=== PATIENT | male | born 1955 | race Caucasian/White ===

== ENCOUNTER 2017-10-17 11:00 | Inpatient (IN) | payer MEDICARE ==
[~2017-10-17] VITALS: Ht 177.8 cm; Wt 81.8 kg
[2017-10-17] MEDS ORDERED: HYDR12.58 PO (11:22)
[2017-10-17] MEDS ORDERED: UMEC62.5 INH (11:22)
[2017-10-17] MEDS ORDERED: FURO-93 PO (11:22)
[2017-10-17] MEDS ORDERED: ATOR-2 PO (11:22)
[2017-10-17] MEDS ORDERED: GABA-827 PO (11:22)
[2017-10-17] MEDS ORDERED: MORP15TA PO (11:22)
[2017-10-17] MEDS ORDERED: OXYC15TA PO (11:22)
[2017-10-17] MEDS ORDERED: CARV-39 PO (11:22)
[2017-10-17] MEDS ORDERED: DICLOFENAC 1% (11:22)
[2017-10-17] MEDS ORDERED: POTA10TA31 PO (11:22)
[2017-10-17] MEDS ORDERED: DOXA4TAB3 PO (11:22)
[2017-10-17] MEDS ORDERED: ASPI-621 PO (11:47)
[2017-10-17 11:55] LABS: BASOPHILS # (AUTO) 0.04 x10^3/uL (0-0.1); BASOPHILS % (AUTO) 1 % (0-1); EOSINOPHILS % (AUTO) 4 % (1-7); LYMPHOCYTES # (AUTO) 1.61 x10^3/uL (1-3.4); LYMPHOCYTES % (AUTO) 23 % (22-44); MD NO; MEAN CORPUSCULAR HEMOGLOBIN 28.6 pg (27.5-34.5); MEAN CORPUSCULAR HGB CONC 33.4 g/dL (33.2-36.2); MEAN CORPUSCULAR VOLUME 85.7 fL (81-97); MEAN PLATELET VOLUME 7.6 fL (7.4-10.4); MONOCYTES # (AUTO) 0.63 x10^3/uL (0.2-0.8); MONOCYTES % (AUTO) 9 % (2-9); NEUTROPHILS # (AUTO) 4.48 x10^3/uL (1.8-6.8); NEUTROPHILS % (AUTO) 64 % (42-75); PLATELET COUNT 234 x10^3/uL (130-400); RED BLOOD COUNT 4.14 x10^6/uL (4.38-5.82); RED CELL DISTRIBUTION WIDTH 17.7 % (9.4-14.8)
[2017-10-17 12:04] LABS: INTERNATIONAL NORMALIZED RATIO 1.05 (0.93-1.1); PROTHROMBIN TIME 10.8 Seconds (9.6-11.5)
[2017-10-17 12:07] LABS: ALBUMIN 3.7 g/dL (3.4-5.0); ANION GAP 6 mmol/L (5-15); CALCIUM 8.4 mg/dL (8.5-10.1); CHLORIDE 105 mmol/L (98-107)
[2017-10-17 12:11] LABS: ALANINE AMINOTRANSFERASE 25 U/L (12-78); ALKALINE PHOSPHATASE 99 U/L (45-117); BILIRUBIN,TOTAL 0.6 mg/dL (0.2-1.0); CREATININE 0.75 mg/dL (0.7-1.3); TOTAL PROTEIN 7.8 g/dL (6.4-8.2)
[2017-10-17 12:28] LABS: MICROSCOPIC NOT IND
[2017-10-17 12:31] LABS: CULTURE INDICATED? NO
[2017-10-17 12:50] LABS: HEMOGLOBIN A1C 5.7 % (4.2-6.3)
[2017-10-20] MEDS ORDERED: KETOROLAC 60 MG/2 ML ONE (07:02)
[2017-10-20] MEDS ORDERED: ROPIvacaine/PF 0.2%, 20 ML ONE (07:03)
[2017-10-20] MEDS ORDERED: TRANEXAMIC ACID 100 MG/ML, 10ML ONE ×4 (07:03)
[2017-10-20] MEDS ORDERED: EPINEPHRINE 1 MG/ML, 1ML ONE (07:03)
[2017-10-20] MEDS ORDERED: GABAPENTIN 300 MG CAPSULE PO ONE (10:00)
[2017-10-20] MEDS ORDERED: ACETAMINOPHEN 500 MG TABLET PO ONE (10:00)
[2017-10-20] MEDS ORDERED: VANCOMYCIN PER PHARMACY MC ONE (10:02)
[2017-10-20] MEDS ORDERED: VANCOMYCIN 1,700 MG in SODIUM CHLORIDE 0.9% 250 ML IV ONE (10:30)
[2017-10-20] MEDS ORDERED: VANCOMYCIN 1,600 MG in SODIUM CHLORIDE 0.9% 250 ML IV ONE (10:30)
[2017-10-20 10:31] VITALS: BP 125/65
[2017-10-20] MEDS ORDERED: LACTATED RINGERS 1,000 ML IV SCH (10:55)
[2017-10-20] MEDS ORDERED: MIDAZOLAM 1 MG/ML, 2ML ONE (12:55)
[2017-10-20] MEDS ORDERED: FENTANYL PF 250 MCG/5ML ONE (12:56)
[2017-10-20] MEDS ORDERED: DIPHENHYDRAMINE 50 MG CAPSULE PO PRN (13:30)
[2017-10-20] MEDS ORDERED: ALUMINUM/MAG/SIMETHICONE 30 ML UDC PO PRN (13:30)
[2017-10-20] MEDS ORDERED: ONDANSETRON 4 MG TABLET PO PRN (13:30)
[2017-10-20] MEDS ORDERED: SENNA/DOCUSATE TABLET PO PRN (13:30)
[2017-10-20] MEDS ORDERED: ONDANSETRON 2MG/ML, 2ML IV PRN (13:30)
[2017-10-20] MEDS ORDERED: VANCOMYCIN PMX 1GM/200ML 200 ML IVPB SCH (13:30)
[2017-10-20] MEDS ORDERED: CEFAZOLIN PMX 1GM/50ML 50 ML IVPB SCH (13:30)
[2017-10-20] MEDS ORDERED: MAGNESIUM HYDROXIDE 8%, 30ML UDC PO PRN (13:30)
[2017-10-20] MEDS ORDERED: hydrALAzine 20 MG/ML, 1ML ONE (13:55)
[2017-10-20] MEDS ORDERED: GLYCOPYRROLATE 0.2MG/1ML, 5ML ONE (13:55)
[2017-10-20] MEDS ORDERED: CEFAZOLIN 1,000 MG ONE (13:55)
[2017-10-20] MEDS ORDERED: NEOSTIGMINE 1 MG/ML, 10ML ONE (13:55)
[2017-10-20] MEDS ORDERED: DEXAMETHASONE 4 MG/ML, 1ML ONE (13:55)
[2017-10-20] MEDS ORDERED: ONDANSETRON 2MG/ML, 2ML ONE (13:55)
[2017-10-20] MEDS ORDERED: ROCURONIUM 10 MG/ML,10ML ONE (13:55)
[2017-10-20] MEDS ORDERED: PROPOFOL 10 MG/ML, 20ML ONE (13:55)
[2017-10-20] MEDS ORDERED: TRANEXAMIC ACID 1,000 MG in SODIUM CHLORIDE 0.9% 100 ML IVPB ONE (14:15)
[2017-10-20] MEDS ORDERED: VANCOMYCIN 1,000 MG ONE (15:20)
[2017-10-20] MEDS ORDERED: VANCOMYCIN 1,000 MG IM ONE (15:23)
[2017-10-20] MEDS ORDERED: morphine SULFATE 10 MG/ML, 1ML ONE (16:12)
[2017-10-20] MEDS ORDERED: DIAZEPAM 5 MG TABLET ONE (16:12)
[2017-10-20] MEDS ORDERED: OXYcodone 5 MG/5 ML ORAL.SOL UDC ONE (16:13)
[2017-10-20] MEDS: DIAZEPAM 5 MG TABLET PO PRN ×2 (16:15→21:18)
[2017-10-20] MEDS: MORPHINE SULFATE 4 MG/ML, 1ML IVPush PRN ×4 (16:18→16:44)
[2017-10-20] MEDS ORDERED: PROMETHAZINE 25 MG/ML, 1ML IV PRN (16:30)
[2017-10-20] MEDS ORDERED: ALBUTEROL SULFATE 2.5 MG/3 ML NPPB PRN (16:30)
[2017-10-20] MEDS ORDERED: FENTANYL PF 100 MCG/2ML IV PRN (16:30)
[2017-10-20] MEDS ORDERED: LABETALOL 5MG/ML, 20ML IV PRN (16:30)
[2017-10-20] MEDS ORDERED: HYDROmorphone 1 MG/ML, 1ML IV PRN (16:30)
[2017-10-20] MEDS ORDERED: hydrALAzine 20 MG/ML, 1ML IV PRN (16:30)
[2017-10-20] MEDS ORDERED: OXYcodone 5 MG/5 ML ORAL.SOL UDC PO PRN (16:30)
[2017-10-20] MEDS ORDERED: MEPERIDINE/PF 25MG/0.5ML IVPush PRN (16:30)
[2017-10-20] MEDS ORDERED: LORazepam 2 MG/ML, 1ML IVPush PRN (16:30)
[2017-10-20] MEDS ORDERED: MORPHINE SULFATE 4 MG/ML, 1ML ONE (16:42)
[2017-10-20] MEDS: morphine SULFATE 10 MG/ML, 1ML IV PRN ×2 (18:13→19:29)
[2017-10-20] MEDS: CARVEDILOL 25 MG TABLET PO SCH (19:28)
[2017-10-20] MEDS: OXYcodone IR 5MG TABLET PO SCH ×2 (19:29→22:48)
[2017-10-20 20:15] VITALS: BP 135/70
[2017-10-20] MEDS: IPRATROPIUM 0.5 MG/2.5 ML INHA NPPB SCH ×2 (21:00→21:30)
[2017-10-20] MEDS: DOCUSATE 100 MG CAPSULE PO SCH (21:06)
[2017-10-20] MEDS: ATORVASTATIN 80 MG TABLET PO SCH (21:06)
[2017-10-20] MEDS: D5%-0.45NACL+KCL 20MEQ 1,000 ML IV SCH (21:07)
[2017-10-20] MEDS: GABAPENTIN 400 MG CAPSULE PO SCH (21:07)
[2017-10-20] MEDS: ACETAMINOPHEN 650 MG/20.3 ML UDC PO PRN (21:18)
[2017-10-20] MEDS: CEFAZOLIN PMX 1GM/50ML 50 ML IVPB SCH (22:01)
[2017-10-21 00:35] VITALS: BP 124/62
[2017-10-21] MEDS ORDERED: VANCOMYCIN PMX 1GM/200ML 200 ML IVPB SCH (01:00)
[2017-10-21] MEDS: OXYcodone IR 5MG TABLET PO SCH ×6 (03:00→23:30)
[2017-10-21] MEDS: OXYcodone IR 5MG TABLET PO PRN ×3 (03:29→20:39)
[2017-10-21] MEDS: ACETAMINOPHEN 650 MG/20.3 ML UDC PO PRN (03:29)
[2017-10-21 03:32] VITALS: BP 149/72
[2017-10-21] MEDS: D5%-0.45NACL+KCL 20MEQ 1,000 ML IV SCH ×3 (05:00→20:52)
[2017-10-21] MEDS ORDERED: DEXAMETHASONE 4 MG/ML, 1ML IVPush SCH (06:00)
[2017-10-21] MEDS: CARVEDILOL 25 MG TABLET PO SCH ×2 (06:30→17:04)
[2017-10-21] MEDS: CEFAZOLIN PMX 1GM/50ML 50 ML IVPB SCH (06:36)
[2017-10-21] MEDS: IPRATROPIUM 0.5 MG/2.5 ML INHA NPPB SCH ×4 (07:20→20:00)
[2017-10-21 08:00] VITALS: BP 137/56
[2017-10-21] MEDS: DOCUSATE 100 MG CAPSULE PO SCH ×2 (08:35→20:40)
[2017-10-21] MEDS: FUROSEMIDE 20 MG TABLET PO SCH (08:35)
[2017-10-21] MEDS: HYDROCHLOROTHIAZIDE 12.5 MG CAPSULE PO SCH (08:35)
[2017-10-21] MEDS: GABAPENTIN 400 MG CAPSULE PO SCH ×3 (08:35→20:41)
[2017-10-21] MEDS: POTASSIUM CHLORIDE 10 MEQ TABLET.ER PO SCH (08:35)
[2017-10-21] MEDS: TAMSULOSIN 0.4 MG CAP.ER.24H PO SCH (08:35)
[2017-10-21] MEDS: KETOROLAC 30 MG/1 ML IV SCH ×2 (13:50→20:41)
[2017-10-21] MEDS: DIAZEPAM 5 MG TABLET PO PRN ×2 (14:07→18:52)
[2017-10-21 15:10] VITALS: BP 136/61
[2017-10-21 17:00] VITALS: BP 163/61
[2017-10-21] MEDS: ASPIRIN 81 MG TABLET EC PO SCH (17:04)
[2017-10-21] MEDS: morphine SULFATE 10 MG/ML, 1ML IV PRN (19:29)
[2017-10-21 20:06] VITALS: BP 154/73
[2017-10-21] MEDS: ATORVASTATIN 80 MG TABLET PO SCH (20:40)
[2017-10-22] MEDS: OXYcodone IR 5MG TABLET PO PRN ×3 (00:43→08:45)
[2017-10-22] MEDS: DIAZEPAM 5 MG TABLET PO PRN ×4 (01:09→09:35)
[2017-10-22 01:12] VITALS: BP 139/66
[2017-10-22] MEDS: OXYcodone IR 5MG TABLET PO SCH ×2 (03:30→07:30)
[2017-10-22] MEDS: D5%-0.45NACL+KCL 20MEQ 1,000 ML IV SCH (04:46)
[2017-10-22] MEDS: KETOROLAC 30 MG/1 ML IV SCH ×2 (05:30→05:36)
[2017-10-22] MEDS: ASPIRIN 81 MG TABLET EC PO SCH (05:31)
[2017-10-22] MEDS: CARVEDILOL 25 MG TABLET PO SCH (05:31)
[2017-10-22] MEDS: IPRATROPIUM 0.5 MG/2.5 ML INHA NPPB SCH (07:00)
[2017-10-22 07:20] VITALS: BP 109/54
[2017-10-22] MEDS: DOCUSATE 100 MG CAPSULE PO SCH (08:44)
[2017-10-22] MEDS: POTASSIUM CHLORIDE 10 MEQ TABLET.ER PO SCH (08:44)
[2017-10-22] MEDS: TAMSULOSIN 0.4 MG CAP.ER.24H PO SCH (08:44)
[2017-10-22] MEDS: FUROSEMIDE 20 MG TABLET PO SCH ×2 (08:45→08:47)
[2017-10-22] MEDS: HYDROCHLOROTHIAZIDE 12.5 MG CAPSULE PO SCH ×2 (08:45→08:48)
[2017-10-22] MEDS: GABAPENTIN 400 MG CAPSULE PO SCH (08:45)
[2017-10-22] MEDS ORDERED: SULF1TAB24 PO (10:04)
[2017-10-22] MEDS ORDERED: IPRATROPIUM 0.5 MG/2.5 ML INHA NPPB SCH (21:00)
== END 2017-10-22 10:24 | disposition home or self-care (01) | DRG 467 ==
LOC: ORIP 10-20 09:27 → EDSTATUS 10-20 11:30 → 4NOR 10-20 17:48 → DCLOUNGE 10-22 10:04
PROVIDERS: ADMIT Orthopaedic Surgery; ATTEND Orthopaedic Surgery
PROC: 0SPB0JZ Removal of Synthetic Substitute from Left Hip Joint, Open Approach (ICD-10-PCS; 2017-10-20)
PROC: 01QF0ZZ Repair Sciatic Nerve, Open Approach (ICD-10-PCS; 2017-10-20)
PROC: 0SRB04Z Replacement of Left Hip Joint with Ceramic on Polyethylene Synthetic Substitute, Open Approach (ICD-10-PCS; principal; 2017-10-20 11:30)
DX: T84.52XA Infection and inflammatory reaction due to internal left hip prosthesis, initial encounter (principal); M00.252 Other streptococcal arthritis, left hip; Y83.1 Surgical operation with implant of artificial internal device as the cause of abnormal reaction of the patient, or of later complication, without mention of misadventure at the time of the procedure; G57.02 Lesion of sciatic nerve, left lower limb; I10 Essential (primary) hypertension; I25.10 Atherosclerotic heart disease of native coronary artery without angina pectoris; Z96.643 Presence of artificial hip joint, bilateral; B95.4 Other streptococcus as the cause of diseases classified elsewhere; Y92.89 Other specified places as the place of occurrence of the external cause; Z95.1 Presence of aortocoronary bypass graft; Z95.2 Presence of prosthetic heart valve; Z86.73 Personal history of transient ischemic attack (TIA), and cerebral infarction without residual deficits
CPT/HCPCS: 36415; 72170; 80053; 81003; 83036; 85014; 85018; 85025; 85610; 85730; 86850; 86900; 87015; 87070; 87075; 87081; 87102; 87116; 87147; 87205; 87206; 87806; 93005; 94640; C1713; J0171; J0690; J1100; J1885; J2250; J2405; J2704; J2710; J2795; J3010; J3370; J3490; J7644; C1762; C1776; G0475; J0360; J2270; J3480; J7050; J7120